=== PATIENT | female | born 2000 | race Hispanic/Latino ===

== ENCOUNTER 2021-10-10 00:29 | Emergency (ER) | payer BC, OTHER ==
[~2021-10-10] VITALS: Ht 157.5 cm; Wt 52.2 kg
[2021-10-10] MEDS ORDERED: ONDANSETRON HCL INJ 2MG/ML 2ML 2 MG/ML VIAL IV STA ×2 (00:34→01:28)
[2021-10-10] MEDS ORDERED: SODIUM CHLORIDE 0.9% 1000ML 1,000 ML IV ONE (00:45)
[2021-10-10 00:53] LABS: BASOPHILS # (AUTO) 0.1 (0.0-0.1); BASOPHILS % 0.4 % (0.0-1.0); EOSINOPHILS # (AUTO) 0.1 (0.0-0.4); EOSINOPHILS % 0.4 % (0.0-6.0); HEMATOCRIT 38.6 % (34.2-44.1); HEMOGLOBIN 12.8 g/dL (12.0-16.0); LYMPHOCYTES # (AUTO) 3.3 (1.0-3.2); LYMPHOCYTES % 19.7 % (18.0-39.1); MEAN CORPUSCULAR HEMOGLOBIN 28.3 pg (28-32); MEAN CORPUSCULAR HGB CONC 33.2 g/dL (31-35); MEAN CORPUSCULAR VOLUME 85.4 fL (81-99); NEUTROPHILS % 72.8 % (38.7-80.0); PLATELET COUNT 297 x10e3/uL (140-360); RED BLOOD COUNT 4.52 x10e6/uL (3.6-5.1); RED CELL DISTRIBUTION WIDTH 14.1 % (11.7-14.4)
[2021-10-10 01:07] LABS: CALCIUM 8.9 mg/dL (8.4-10.2); CREATININE, SERUM 0.9 mg/dL (0.57-1.11)
[2021-10-10] MEDS ORDERED: TETANUS/DIPHTHERIA TOX ADULT 0.5 ML SYR IM ONE (01:30)
[2021-10-10] MEDS ORDERED: Morphine 4mg Syringe 4 MG/ML INJ IV ONE (01:30)
[2021-10-10] MEDS ORDERED: Morphine 4mg Syringe 4 MG/ML INJ ONE (01:33)
[2021-10-10 03:04] LABS: CLARITY,URINE CLOUDY (CLEAR); COLOR,URINE YELLOW (YELLOW); KETONES,URINE TRACE (NEGATIVE); LEUKOCYTE ESTERASE ,URINE NEGATIVE (NEGATIVE); NITRITE,URINE NEGATIVE (NEGATIVE); PROTEIN,URINE DIPSTICK NEGATIVE (NEGATIVE); URINE UROBILINOGEN 0.2 mg/dL (0.2 - 1)
[2021-10-10 03:36] LABS: BACTERIA,URINE MANY /HPF; RBC,URINE 21-50 /HPF (0-5)
[2021-10-10 03:37] LABS: EPITHELIAL CELLS,URINE MANY /LPF
[2021-10-10] MEDS ORDERED: IOPAMIDOL 370 MG/ML 100 ML INFUS..BTL INJ ONE (06:06)
== END 2021-10-10 04:15 | disposition other institution (70) ==
LOC: ER 00:34
DX: S06.0X0A Concussion without loss of consciousness, initial encounter (principal); S02.40CA Maxillary fracture, right side, initial encounter for closed fracture; S02.31XA Fracture of orbital floor, right side, initial encounter for closed fracture; S80.212A Abrasion, left knee, initial encounter; S80.211A Abrasion, right knee, initial encounter; S50.311A Abrasion of right elbow, initial encounter; V86.55XA Driver of 3- or 4- wheeled all-terrain vehicle (ATV) injured in nontraffic accident, initial encounter; Y92.89 Other specified places as the place of occurrence of the external cause; E03.9 Hypothyroidism, unspecified; D64.9 Anemia, unspecified; F98.8 Other specified behavioral and emotional disorders with onset usually occurring in childhood and adolescence
CPT/HCPCS: 36415; 70450; 70486; 71260; 72125; 73030; 73080; 73502; 73562 ×2; 74177; 80048; 80320; 81001; 84702; 85025; 90471; 90714; 99284; J0690; J2270; J2405; J7030; Q9967

== ENCOUNTER 2021-10-14 21:56 | Emergency (ER) | payer BC, OTHER ==
[~2021-10-14] VITALS: Ht 157.5 cm; Wt 52.2 kg
[2021-10-15] MEDS ORDERED: HYDROCODONE/APAP 5MG-325MG TAB PO ONE (01:00)
[2021-10-15] MEDS ORDERED: HYDROCODON-ACE1 EA11 PO (01:02)
[2021-10-15] MEDS ORDERED: VIGAMOX3 ML OP (01:09)
== END 2021-10-15 01:26 | disposition home or self-care (01) ==
LOC: ER 22:15
DX: S06.0X0A Concussion without loss of consciousness, initial encounter (principal); S02.40CA Maxillary fracture, right side, initial encounter for closed fracture; S02.31XA Fracture of orbital floor, right side, initial encounter for closed fracture; G51.0 Bell's palsy; V86.95XA Unspecified occupant of 3- or 4- wheeled all-terrain vehicle (ATV) injured in nontraffic accident, initial encounter; Y92.89 Other specified places as the place of occurrence of the external cause
CPT/HCPCS: 70450; 70551; 99283